=== PATIENT | male | born 1940 | race Caucasian/White ===

== ENCOUNTER 2017-12-19 08:20 | Day surgery (SDC) | payer OTHER ==
[2017-12-19] MEDS ORDERED: Ringers Lactate 1,000 ML IV ONE (08:42)
[2017-12-19 08:50] LABS: Absolute Lymphocytes (CBC) 2.4 K/uL (0.7-4.9); Absolute Monocytes 0.4 K/uL (0.1-1.3); Absolute Neutrophil 4.8 K/uL (1.8-8.0); Basophils % 0.9 % (0-1.3); Eosinophils % 1.5 % (0-4.4); Hematocrit 43.4 % (39.6-49.0); Lymphocytes % 30.9 % (15.3-44.8); MCH 29.7 pg (27.0-35.0); MCV 88.6 fL (80-100); MPV 7.5 fL (7.6-11.3); Monocytes % 4.9 % (3.3-12.3)
--- NOTE | 2017-12-19 09:15 | RAD REPORT ---
EXAM DESCRIPTION: RAD - Chest Pa And Lat (2 Views) - 12/19/2017 8:59 am CLINICAL HISTORY: preop Chest pain. COMPARISON: Chest Single View dated 01/20/2016; CHEST SINGLE VIEW dated 05/31/2015; CHEST SINGLE VIEW dated 05/30/2015; CHEST SINGLE VIEW dated 03/25/2014 FINDINGS: The lungs are clear. The heart is upper limit normal in size. No displaced fractures. IMPRESSION: No acute or concerning finding suspected.
[2017-12-19] MEDS ORDERED: LIDOCAINE 1% MPF 2 ML AMPULE ONE (09:44)
[2017-12-19] MEDS ORDERED: PROPOFOL 200 MG/20 ML VIAL IV ONE (09:44)
--- NOTE | 2017-12-19 10:16 | ENDO RPT ---
[address], [address] COLONOSCOPY PROCEDURE REPORT EXAM DATE: 12/19/2017 PATIENT NAME: Bebeto Meeks MR #: [id number] BIRTHDATE: 1940 ATTENDING: Pepe Diaz M.D. STATUS: outpatient MANAGED CARE LIAISON: Brittny Oliver and Jazmine Conde RN INDICATIONS: The patient is a 77 yr old Male here for a colonoscopy due to colon cancer screening PROCEDURE PERFORMED: Screening Colonoscopy MEDICATIONS: Per Anesthesia. ESTIMATED BLOOD LOSS: None CONSENT: The patient understands the risks and benefits of the procedure and understands that these risks include, but are not limited to: sedation, allergic reaction, infection, perforation and/or bleeding. Alternative means of evaluation and treatment include, among others: physical exam, x-rays, and/or surgical intervention. The patient elects to proceed with this endoscopic procedure. DESCRIPTION OF PROCEDURE: During intra-op preparation period all mechanical medical equipment was checked for proper function. Hand hygiene and appropriate measures for infection prevention was taken. Procedure, possible complications, alternatives including, but not limited to possibility of bleeding, perforation, tear, infection, sepsis, need for surgery, need for blood transfusion, were explained to the patient. After the risks, benefits and alternatives of the procedure were thoroughly explained, Informed consent was verified, confirmed and timeout was successfully executed by the treatment team. The patient was placed in the left lateral position. A digital rectal exam was performed and revealed an enlarged prostate. After appropriate level of anesthesia, the scope was passed. The EC-[id number] ([id number]) endoscope was introduced through the anus and advanced to the cecum, which was identified by the ileocecal valve. The quality of the prep was good. The instrument was then slowly withdrawn as the colon was fully examined. Scope withdrawal time was 10 minutes. COLON FINDINGS: Diverticula was found in the sigmoid colon. The opening was medium sized. Internal hemorrhoids were found. Retroflexed views revealed no abnormalities and Retroflexed views revealed small hemorrhoids. The scope was then completely withdrawn from the patient and the procedure terminated. ADVERSE EVENTS: There were no complications. IMPRESSIONS: 1. Diverticula in the sigmoid colon 2. Internal hemorrhoids RECOMMENDATIONS: 1. follow-up: office 1 week(s) 2. Metamucil 3. increase dietary water 4. no seeds in diet RECALL: Return in 10 year(s) Pepe Diaz M.D. eSigned: Pepe Diaz M.D. 12/19/2017 10:15 AM cc: CPT CODES: ICD9 CODES: PATIENT NAME: Bebeto Meeks MR#: [id number]
[2017-12-19 10:39] VITALS: TEMP 98.2
[2017-12-19 10:40] VITALS: BP 108/54; O2SAT 96
--- NOTE | 2017-12-21 16:31 | EKG ---
Test Date: 2017-12-20 Test Time: 18:00:37 Counter Tender: ROSI MEASUREMENT RESULTS: Intervals: Rate: 91 WA: 146 QRSD: 86 QT: 360 QTc: 442 [place]: P: 53 WA: 146 QRS: 27 T: 48 INTERPRETIVE STATEMENTS: Normal sinus rhythm Normal ECG Compared to ECG 05/31/2015 06:41:29 Sinus bradycardia no longer present Electronically Signed On 12-21-17 16:27:53 CDT by Tirso Broussard
== END 2017-12-19 10:45 | disposition home or self-care (01) ==
LOC: OR 08:20
PROVIDERS: ATTEND Surgery
PROC: 0DJD8ZZ Inspection of Lower Intestinal Tract, Via Natural or Artificial Opening Endoscopic (ICD-10-PCS; principal; 2017-12-19 10:00)
DX: Z12.11 Encounter for screening for malignant neoplasm of colon (principal); Z88.5 Allergy status to narcotic agent; Z88.2 Allergy status to sulfonamides; I25.10 Atherosclerotic heart disease of native coronary artery without angina pectoris; Z95.5 Presence of coronary angioplasty implant and graft; I25.2 Old myocardial infarction; Z79.02 Long term (current) use of antithrombotics/antiplatelets; Z79.82 Long term (current) use of aspirin; K57.30 Diverticulosis of large intestine without perforation or abscess without bleeding; K64.8 Other hemorrhoids
CPT/HCPCS: 36415; 71046; 85025; 93005; G0121; J2001

== ENCOUNTER 2018-04-01 20:06 | Emergency (ER) | payer OTHER ==
[2018-04-01] MEDS ORDERED: HYDROCODONE/APAP 10/325 TAB ONE (20:31)
--- NOTE | 2018-04-01 21:12 | RAD REPORT ---
EXAM DESCRIPTION: CT - Head Brain Wo Cont - 04/01/2018 8:53 pm CLINICAL HISTORY: Trip and fall, head injury COMPARISON: None. TECHNIQUE: Axial 5 mm thick images of the head were obtained without IV contrast. All CT scans are performed using dose optimization technique as appropriate and may include automated exposure control or mA/KV adjustment according to patient size. FINDINGS: No intracranial hemorrhage, mass, edema or shift of mid-line structures. No acute infarcti on changes seen. No abnormal extra-axial fluid collections. Ventricles are normal. No significant atr ophy or chronic ischemic change. Mastoid air cells and visualized portions of the paranasal sinuses are clear. No acute bony findings. IMPRESSION: Negative non-contrast CT head examination for acute finding.
--- NOTE | 2018-04-01 21:24 | RAD REPORT ---
EXAM DESCRIPTION: RAD - Wrist Right 3 View - 04/01/2018 9:09 pm CLINICAL HISTORY: Trip and fall, wrist pain COMPARISON: None. FINDINGS: Transverse fracture is present in the distal radius. There is an oblique fracture line idania t extends to the articular surface. No distraction or angulation deformity seen. An old ulna styloid fracture is evident. Widening of the scapholunate joint space is present. This is probably chronic. A ge is indeterminate. 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 There is no dislocation or periosteal reaction noted. Epiphyses and growth plates are Normal in appearance. No foreign body o r other soft tissue abnormality. IMPRESSION: Distal radius fracture extending to the articular surface. No significant distraction or angulation deformity. Widening of the scapholunate joint space likely chronic. Patient has degenerative change in the trape zium and trapezoid bone articulations with a deformed scaphoid bone.
--- NOTE | 2018-04-01 23:15 | ER ---
Nurse's Notes [facility] Name: Bebeto Meesk Age: 77 yrs Sex: Male : 1940 Arrival Date: 04/01/2018 Time: 20:09 Bed 20 Private MD: Scotty Marshall Diagnosis: Distal Radius Fracture;Acute Head Injury Presentation: 04/01 20:16 Presenting complaint: Patient states: I was walking across the parking lot and tripped la1 up the curb and hurt my right wrist and hit my head, pt denies LOC, takes plavix. Transition of care: patient was not received from another setting of care. Onset of symptoms was April 01, 2018. Risk Assessment: Do you want to hurt yourself or someone else? Patient reports no desire to harm self or others. Initial Sepsis Screen: Does the patient meet any 2 criteria? No. Patient's initial sepsis screen is negative. Does the patient have a suspected source of infection? No. Patient's initial sepsis screen is negative. Care prior to arrival: None. 20:16 Method Of Arrival: Ambulatory la1 20:16 Acuity: INDIO 3 la1 Historical: - Allergies: 20:16 Percodan; la1 20:16 Sulfa (Sulfonamide Antibiotics); la1 - Home Meds: 23:28 Aspirin 81 mg Oral once daily [Active]; atorvastatin 80 mg Oral tab 1 tab once daily lp1 [Active]; lisinopril 5 mg Oral tab 1 tab once daily [Active]; multivitamin Oral daily [Active]; Plavix 75 mg Oral tab 1 tab once daily [Active]; - PMHx: 20:16 Hypertension; Myocardial infarction; la1 - Immunization history:: Adult Immunizations up to date. - Social history:: Smoking status: Patient/guardian denies using tobacco. - Ebola Screening: : No symptoms or risks identified at this time. Screenin:38 Abuse screen: Denies threats or abuse. Denies injuries from another. Nutritional lp1 screening: No deficits noted. Tuberculosis screening: No symptoms or risk factors identified. Fall Risk None identified. Assessment: 21:00 General: Appears in no apparent distress. Behavior is appropriate for age. Pain: lp1 Complains of pain in right wrist Pain currently is 7 out of 10 on a pain scale. Neuro: Level of Consciousness is awake, alert, obeys commands. Cardiovascular: Patient's skin is warm and dry. Respiratory: Respiratory effort is even, unlabored. GI: No deficits noted. : No deficits noted. EENT: No deficits noted. Derm: abrasion noted to left side of forehead. Musculoskeletal: Range of motion: limited in right wrist. 22:15 Reassessment: Patient appears in no apparent distress at this time. Patient aware of lp1 need for splint, waiting for tech to be available. 23:15 Reassessment: Patient is alert, oriented x 3, equal unlabored respirations, skin lp1 warm/dry/pink. Patient refuses need for sling to right arm; Provider aware Patient states feeling better. Vital Signs: 20:19 Pulse 96; Resp 16; Temp 98.3(TE); Pulse Ox 98% on R/A; la1 20:20 BP 150 / 71; la1 ED Course: 20:09 Patient arrived in ED. es 20:10 Scotty Marshall MD is Private Physician. es 20:17 Triage completed. la1 20:17 Arm band placed on right wrist. la1 20:43 Robson Hinkle PA is PHCP. jmm 20:43 Tomy Stuart MD is Attending Physician. jmm 20:53 CT completed. Patient tolerated procedure well. Patient moved back from CT. kw1 21:36 Nithya Dixon, DANO is Primary Nurse. lp1 21:38 Patient has correct armband on for positive identification. lp1 23:06 Orthoglass splint: Sugar tong splint applied on right arm. mt 23:13 Bon Betancourt MD is Referral Physician. [facility] 23:28 No provider procedures requiring assistance completed. Patient did not have IV access lp1 during this emergency room visit. Administered Medications: 20:25 Drug: [place] 10 mg-325 mg 1 tabs Route: PO; la1 21:30 Follow up: Response: Pain is decreased lp1 Outcome: 23:14 Discharge ordered by . jmm 23:29 Discharged to home ambulatory, with significant other. lp1 23:29 Condition: good 23:29 Discharge instructions given to patient, Instructed on discharge instructions, follow up and referral plans. medication usage, Demonstrated understanding of instructions, follow-up care, medications, Prescriptions given X 1. 23:29 Patient left the ED. lp1 Signatures: Robson Hinkle PA PA jmm Salyer, Edna es Pena, Laura, RN RN lp1 Amor Lockhart RN RN la1 Lela Ingram mt, Kimberly [facility] Corrections: (The following items were deleted from the chart) 20:18 20:16 Presenting complaint: Patient states: I was walking across the parking lot and la1 tripped up the curb and hurt my right wrist and hit my head, pt denies LOC la1 20:18 20:16 Acuity: INDIO 4 la1 la1
--- NOTE | 2018-04-01 23:15 | EDPHYS ---
Physician Documentation [facility] Name: Bebeto Meeks Age: 77 yrs Sex: Male : 1940 Arrival Date: 04/01/2018 Time: 20:09 Bed 20 Private MD: Scotty Marshall ED Physician Tomy Stuart HPI: 04/01 21:19 This 77 yrs old Male presents to ER via Ambulatory with complaints of Fall jmm Injury, Wrist Injury. 21:19 Details of fall: The patient fell from an upright position, while walking. Onset: The jmm symptoms/episode began/occurred acutely, just prior to arrival. This is a 77 year old male with a history of htn, CAD that presents to the ED with a head injury and right wrist injury after a fall which occurred just prior to arrival. Patient states he tripped while walking onto a curb. Fell forward on an stretched hand injuring his wrist and hitting his head. Patient denies neck pain or other injury. . Historical: - Allergies: 20:16 Percodan; la1 20:16 Sulfa (Sulfonamide Antibiotics); la1 - Home Meds: 23:28 Aspirin 81 mg Oral once daily [Active]; atorvastatin 80 mg Oral tab 1 tab once daily lp1 [Active]; lisinopril 5 mg Oral tab 1 tab once daily [Active]; multivitamin Oral daily [Active]; Plavix 75 mg Oral tab 1 tab once daily [Active]; - PMHx: 20:16 Hypertension; Myocardial infarction; la1 - Immunization history:: Adult Immunizations up to date. - Social history:: Smoking status: Patient/guardian denies using tobacco. - Ebola Screening: : No symptoms or risks identified at this time. ROS: 21:19 Constitutional: Negative for fever, chills, and weight loss, Eyes: Negative for injury, jmm pain, redness, and discharge, Cardiovascular: Negative for chest pain, palpitations, and edema, Respiratory: Negative for shortness of breath, cough, wheezing, and pleuritic chest pain. 21:19 MS/extremity: Positive for injury or acute deformity. 21:19 Neuro: Negative for dizziness, headache. 21:19 All other systems are negative. Exam: 21:19 Eyes: EOMI, no conjunctival erythema appreciated ENT: Moist Mucus Membranes jmm 21:19 Cardiovascular: Regular rate and rhythm. No edema appreciated Respiratory: Normal respirations, no respiratory distress appreciated 21:19 Constitutional: The patient appears in no acute distress, alert, awake. 21:19 Head/face: abrasion noted to the left frontal scalp. 21:19 Neck: C-spine: appears grossly normal, ROM/movement: is normal. 21:19 Musculoskeletal/extremity: swelling noted to the right wrist, no snuffbox tenderness is appreciated, compartments are soft, NVI. 21:19 Skin: Appearance: Color: normal in color. 21:19 Neuro: Orientation: is normal, Mentation: is normal, Memory: is normal. 21:19 Psych: Behavior/mood is pleasant, cooperative. Vital Signs: 20:19 Pulse 96; Resp 16; Temp 98.3(TE); Pulse Ox 98% on R/A; la1 20:20 BP 150 / 71; la1 MDM: 21:19 Patient medically screened. [facility] 23:12 Data reviewed: vital signs, nurses notes. Counseling: I had a detailed discussion with thiago the patient and/or guardian regarding: the historical points, exam findings, and any diagnostic results supporting the discharge/admit diagnosis, radiology results, the need for outpatient follow up, to return to the emergency department if symptoms worsen or persist or if there are any questions or concerns that arise at home. 04/01 20:25 Order name: Wrist Right 3 View XRAY la1 04/01 20:25 Order name: CT Head Brain wo Cont la1 04/01 21:14 Order name: CT; Complete Time: 21:45 EDMS 04/01 21:24 Order name: RAD; Complete Time: 21:45 EDMS 04/01 21:46 Order name: Sugar Tong Forearm Splint; Complete Time: 23:06 [facility] Administered Medications: 20:25 Drug: [place] 10 mg-325 mg 1 tabs Route: PO; la1 21:30 Follow up: Response: Pain is decreased lp1 Disposition: 04/02 05:01 Co-signature as Attending Physician, Tomy Stuart MD. rn Disposition: 04/01/18 23:14 Discharged to Home. Impression: Distal Radius Fracture, Acute Head Injury. - Condition is Stable. - Discharge Instructions: Head Injury, Adult, Radial Fracture. - Prescriptions for Tylenol- Codeine #3 300-30 mg Oral Tablet - take 1 tablet by ORAL route every 6 hours As needed; 20 tablet. - Medication Reconciliation Form, Thank You Letter, Antibiotic Education, Prescription Opioid Use form. - Follow up: Bon Betancourt MD; When: 2 - 3 days; Reason: Recheck today's complaints, Continuance of care, Re-evaluation by your physician. Signatures: Dispatcher [employer] EDMS Robson Hinkle PA PA Tomy King MD MD rn Pena, Laura RN RN lp1 Amor Lockhart RN RN la1 Corrections: (The following items were deleted from the chart) 04/01 23:06 21:46 Sling ordered. [facility] 23:29 23:14 04/01/2018 23:14 Discharged to Home. Impression: Distal Radius Fracture; Acute lp1 Head Injury. Condition is Stable. Forms are Medication Reconciliation Form, Thank You Letter, Antibiotic Education, Prescription Opioid Use. Follow up: Bon Betancourt; When: 2 - 3 days; Reason: Recheck today's complaints, Continuance of care, Re-evaluation by your physician. [facility]
[2018-04-01 23:40] VITALS: TEMP 98.3; O2SAT 98
[2018-04-01 23:41] VITALS: BP 150/71
== END 2018-04-01 23:29 | disposition home or self-care (01) ==
LOC: ER 20:06
PROC: 2W3CX1Z Immobilization of Right Lower Arm using Splint (ICD-10-PCS; principal; 2018-04-01)
DX: S52.501A Unspecified fracture of the lower end of right radius, initial encounter for closed fracture (principal); S09.90XA Unspecified injury of head, initial encounter; W01.198A Fall on same level from slipping, tripping and stumbling with subsequent striking against other object, initial encounter; Y93.01 Activity, walking, marching and hiking; Y92.481 Parking lot as the place of occurrence of the external cause; I10 Essential (primary) hypertension; I25.10 Atherosclerotic heart disease of native coronary artery without angina pectoris; I25.2 Old myocardial infarction; Z79.82 Long term (current) use of aspirin; Z79.02 Long term (current) use of antithrombotics/antiplatelets; Z79.899 Other long term (current) drug therapy
CPT/HCPCS: 70450; 99284

== ENCOUNTER 2021-10-13 13:10 | Emergency (ER) | payer OTHER ==
--- OUTSIDE RECORDS SUMMARY | 2021-10-13 13:14 | XMS REPORT | Continuity of Care Document ---
:1940 Author Organization [facility] t Address [address] [place] [address] Care Team Providers Name Role Phone MINNIE NORRIS Attending Clinician Unavailable Payers Payer Name Policy Type Policy Number Effective Date Expiration Date Ketty corrales [employer] MED[employer]ARE HMO [id number] 2020 POS PPO 00:00:00 Problems This patient has no known problems. Allergies, Adverse Reactions, Alerts Allergy Allergy Status Severity Reaction(s) Onset Inactive Treating Comm ents Source Name Type Date Date Clinician OXYCODON Allergy Active 2017-[address] [facility]: [facility] ODONE- 00 [facility] A SULFA Allergy Active 2017-[address] [facility] [address] [facility]SULFONA [facility] 00:[facility]: Medical ANTIBIOT 00 Center ICS) Medications This patient has no known medications. Procedures This patient has no known procedures. Encounters Start End Encounter Admission Attending Care Care Encounter Source Date/Time Date/Time Type Type Clinicians Facility Department ID 2020-05-12 2020-05-12 Outpatient [facility] [id number] [facility] 00:00:00 00:00:00 2020-05-08 2020-05-08 Outpatient [facility] [id number] [facility] 00:00:00 00:00:00 Results Test Description Test Time Test Comments Results Result Comments Source SARS-COV2/RT-PCR ([facility]) 2020-05-12 17:45:00 Test Item Value Reference Range Interpretation Comme nts SARS-COV2/RT-PCR (test code = 1047376) Negative Not Detected, N egative, See external report for linked test SARS-COV-2 PERFORMING LAB (test code = [facility] [id number]) Negative result for this test determines that SARS-CoV-2 RNA was not present in the specimen above the Limit of Detection (LOD). However, Negative results do not preclude SARS-CoV-2 infection and should not be used as the sole basis for treatment or patient management decisions. Negative results mustbe combined with clinical observations, patient history, and epidemiological information. A false negative result may occur if a specimen is improperly collected, transported or handled. A false negative result should be considered if patient's recent exposures or clinical presentation indicate that COVID-19 (SARS-CoV-2) is likely and diagnostic tests for other causes of illness are negative. Re-testing should be considered in cases of suspected false negatives.The limit of detection for this assay is 800 copies/mL.This SARS CoV-2 test is a real-time RT-PCR test intended for the qualitative detection of nucleic acid from SARS-CoV-2 in a nasopharyngeal swab specimen collected from individuals susp ected of COVID-19 by their healthcare provider.This test has not been Food and Drug Administration (FDA) cleared or approved. This is a modified version of an approved Emergency Use Authorization (EUA) and is in the process of review by the FDA. Once authorized by the FDA, the issued EUA will be effective until the declaration that circumstances exist justifying the authorization of the emergency use of in vitro diagnostic tests for detection and/or diagnosis of COVID-19 is terminated under Section 564(b)(2) of the Act or the EUA is revoked under Section 564(g) of the Act.Fact Sheet for Healthcare Providers:https://www.[employer].com/sites/default/files/product/documents/Fact_Shee a_NG_Tjvahfhzw_Filk_RLSP-ByW-2.pdfFact Sheet for Healthcare Patients:https://www.[employer].com/sites/default/files/product/ documents/Rbct_Thydt_Ugifreey_Fzmi_LOZW-NmB-1.pdfPerforming Laboratory:[facility].[place], [place] [address]MMDM-XVF5/RT-PCR ([facility])2020-05-08 14:33:00 Test Item Value Reference Range Interpretation Comments SARS-COV2/RT-PCR (test Negative Not Detected, Negative, code = [id number]) See external report for linked test SARS-COV-2 PERFORMING LAB [facility] (test code = [id number]) Negative result for this test determines that SARS-CoV-2 RNA was not present in the specimen above the Limit of Detection (LOD). However, Negative results do not preclude SARS-CoV-2 infection and should not be used as the sole basis for treatment or patient management decisions. Negative results mustbe combined with clinical observations, patient history, and epidemiological information. A false negative result may occur if a specimen is improperly collected, transported or handled. A false negative result should be considered if patient's recent exposures or clinical presentation indicate that COVID-19 (SARS-CoV-2) is likely and diagnostic tests for other causes of illness are negative. Re-testing should be considered in cases of suspected false negatives.The limit of detection for this assay is 800 copies/mL.This SARS CoV-2 test is a real-time RT-PCR test intended for the qualitative detection of nucleic acid from SARS-CoV-2 in a nasopharyngeal swab specimen collected from individuals susp ected of COVID-19 by their healthcare provider.This test has not been Food and Drug Administration (FDA) cleared or approved. This is a modified version of an approved Emergency Use Authorization (EUA) and is in the process of review by the FDA. Once authorized by the FDA, the issued EUA will be effective until the declaration that circumstances exist justifying the authorization of the emergency use of in vitro diagnostic tests for detection and/or diagnosis of COVID-19 is terminated under Section 564(b)(2) of the Act or the EUA is revoked under Section 564(g) of the Act.Fact Sheet for Healthcare Providers:https://www.[employer].com/sites/default/files/product/documents/Fact_Shee n_NR_Vsvsxfjhm_Gezb_YOIH-CnE-0.pdfFact Sheet for Healthcare Patients:https://www.[employer].com/sites/default/files/product/ documents/Sukp_Qvbmo_Wzaqbaud_Ucok_PISO-NdZ-8.pdfPerforming Laboratory:[facility] [place] [address]
--- NOTE | 2021-10-13 14:10 | RAD REPORT ---
EXAM DESCRIPTION: RAD - Chest Single View - 10/13/2021 2:03 pm CLINICAL HISTORY: CHEST PAIN COMPARISON: Chest Pa And Lat (2 Views) dated 12/19/2017; Chest Single View dated 01/20/2016; CHEST SIN GLE VIEW dated 05/31/2015; CHEST SINGLE VIEW dated 05/30/2015 FINDINGS: Lines: None. Lungs: No evidence of edema or pneumonia. Pleural: No significant pleural effusions or pneumothorax. Cardiac: The heart size is within normal limits. Bones: No acute fractures. Other: IMPRESSION: No acute cardiopulmonary disease.
[2021-10-13 14:51] LABS: Absolute Lymphocytes (CBC) 2.6 K/uL (0.7-4.9); Hematocrit 41.7 % (39.6-49.0); Lymphocytes % 31.3 % (15.3-44.8); MPV 7.5 fL (7.6-11.3); Protime INR 0.98; RBC Red Blood Cell Count 4.59 M/uL (4.33-5.43)
[2021-10-13 14:54] LABS: ALT/SGPT 25 U/L (12-78); AST/SGOT 21 U/L (15-37); Albumin 3.6 g/dL (3.4-5.0); Alkaline Phosphatase 89 U/L (45-117); BUN Blood Urea Nitrogen 24 mg/dL (7-18); Bicarbonate 27 mmol/L (21-32); Bilirubin Total 0.3 mg/dL (0.2-1.0); Glomerular Filtration Rate 67 ml/min (=/>90); Glucose Level 100 mg/dL (74-106); Magnesium 2.3 mg/dL (1.8-2.4); NT PRO-BNP 87 pg/mL (<450); Potassium 4.5 mmol/L (3.5-5.1); Protein, Total 6.9 g/dL (6.4-8.2); Sodium Level 140 mmol/L (136-145); Troponin High Sensitivity 6.8 pg/mL (<58.9)
[2021-10-13 14:59] LABS: Bilirubin Direct < 0.1 mg/dL (0-0.2)
--- NOTE | 2021-10-13 16:08 | EDPHYS ---
Physician Documentation [facility] Name: Bebeto Meeks Age: 81 yrs Sex: Male : 1940 Arrival Date: 10/13/2021 Time: 13:11 Bed 7 Private MD: ED Physician Tristan Shafer HPI: 10/13 13:44 This 81 yrs old Male presents to ER via Ambulatory with complaints of Chest Pain. pm1 13:44 The patient or guardian reports chest pain that is located primarily in the The patient pm1 or guardian reports chest pain that is located primarily in the xiphoid area. Onset: yesterday. The pain does not radiate. Associated signs and symptoms: The patient has no apparent associated signs or symptoms, Pertinent positives: cough, Pertinent negatives: abdominal pain, dizziness, headache, shortness of breath. The chest pain is described as sharp. Duration: The patient or guardian reports a single episode, that is still ongoing, but improving. Modifying factors: the symptoms are aggravated by cough. Severity of pain: in the emergency department the pain is a 2 / 10. The patient has not recently seen a physician. Historical: - Allergies: 13:19 Percodan; tw2 13:19 Sulfa (Sulfonamide Antibiotics); tw2 - Home Meds: 13:19 multivitamin Oral daily [Active]; Aspirin 81 mg Oral weekly [Active]; lisinopril 5 mg tw2 Oral tab 1 tab once daily [Active]; Plavix 75 mg Oral tab 1 tab once daily [Active]; atorvastatin 80 mg Oral tab 1 tab once daily [Active]; gabapentin 300 mg oral Tb24 1 tab once daily [Active]; - PMHx: 13:19 Hypertension; Myocardial infarction; tw2 - PSHx: 13:19 Cholecystectomy; b/l Knee replacement; neck sx; tw2 - Immunization history:: Client reports receiving the 2nd dose of the Covid vaccine. - Social history:: Smoking status: Patient denies any tobacco usage or history of. ROS: 13:44 Constitutional: Negative for fever, chills, and weight loss. pm1 13:44 Respiratory: Negative for shortness of breath, cough, wheezing, and pleuritic chest pain, Abdomen/GI: Negative for abdominal pain, nausea, vomiting, diarrhea, and constipation, MS/Extremity: Negative for injury and deformity, Skin: Negative for injury, rash, and discoloration, Neuro: Negative for headache, weakness, numbness, tingling, and seizure. 13:44 Cardiovascular: Positive for chest pain, Negative for edema, palpitations. 13:44 All other systems are negative. Exam: 13:44 Constitutional: This is a well developed, well nourished patient who is awake, alert, pm1 and in no acute distress. Head/Face: Normocephalic, atraumatic. 13:44 Cardiovascular: Regular rate and rhythm with a normal S1 and S2. No gallops, murmurs, or rubs. Normal PMI, no JVD. No pulse deficits. Respiratory: Lungs have equal breath sounds bilaterally, clear to auscultation and percussion. No rales, rhonchi or wheezes noted. No increased work of breathing, no retractions or nasal flaring. Abdomen/GI: Soft, non-tender, with normal bowel sounds. No distension or tympany. No guarding or rebound. No evidence of tenderness throughout. Back: No spinal tenderness. No costovertebral tenderness. Full range of motion. Skin: Warm, dry with normal turgor. Normal color with no rashes, no lesions, and no evidence of cellulitis. MS/ Extremity: Pulses equal, no cyanosis. Neurovascular intact. Full, normal range of motion. 13:44 Chest/axilla: Inspection: normal, Palpation: tenderness, of the xiphoid area, that totally reproduces the patient's complaints. 13:44 Neuro: Exam negative for acute changes, Orientation: is normal, Mentation: is normal, Motor: is normal, moves all fours. Vital Signs: 13:17 Pulse 91; Resp 17; Temp 98.3; Pulse Ox 98% on R/A; Weight 111.13 kg; Height 5 ft. 10 tw2 in. (177.80 cm); Pain 8/10; 13:17 BP 145 / 88; tw2 14:55 BP 142 / 65; Pulse 90; Resp 17; Pulse Ox 98% ; jg9 15:00 BP 131 / 59; Pulse 68; Resp 14 S; Pulse Ox 98% on R/A; jg9 16:00 BP 148 / 68; Pulse 68; Resp 19 S; Pulse Ox 100% on R/A; jg9 13:17 Body Mass Index 35.15 (111.13 kg, 177.80 cm) tw2 MDM: 14:39 Patient medically screened. pm1 16:05 Data reviewed: vital signs. Data interpreted: Pulse oximetry: on room air is 98 %. pm1 Interpretation: normal. 16:05 Counseling: I had a detailed discussion with the patient and/or guardian regarding: the pm1 historical points, exam findings, and any diagnostic results supporting the discharge/admit diagnosis, lab results, radiology results, the need for further work-up and treatment in the hospital. 16:05 Refusal of service: The patient/guardian displays adequate decision making capability pm1 and despite a detailed discussion of alternatives, benefits, risks, and consequences refuses: Admission to the hospital for further work-up and treatment, Patient would go home AMA since his work-up is negative and he feels that he has pleurisy. Discussed in length with patient my concern and rationale for the need for admission based on risk factors. However patient would like to go home still. Based on patient's reported self impression of pleurisy recommended NSAIDs or steroid. Patient requested to go home with steroid Dosepak. 10/13 13:44 Order name: Basic Metabolic Panel; Complete Time: 15:23 pm1 10/13 13:44 Order name: CBC with Diff; Complete Time: 15:23 pm10/13 13:44 Order name: LFT's; Complete Time: 15:23 pm1 10/13 13:44 Order name: Magnesium; Complete Time: 15:23 pm1 10/13 13:44 Order name: NT PRO-BNP; Complete Time: 15:23 pm10/13 13:44 Order name: PT-INR; Complete Time: 15:23 pm10/13 13:44 Order name: Troponin HS; Complete Time: 15:23 pm1 10/13 13:44 Order name: XRAY Chest (1 view); Complete Time: 14:27 pm10/13 13:44 Order name: EKG; Complete Time: 13:45 pm1 10/13 13:44 Order name: Cardiac monitoring; Complete Time: 14:56 pm1 10/13 13:44 Order name: EKG - Nurse/Tech; Complete Time: 14:59 pm10/13 13:44 Order name: IV Saline Lock; Complete Time: 14:25 pm1 10/13 13:44 Order name: Labs collected and sent; Complete Time: 14:25 pm1 10/13 14:49 Order name: COVID-19 SARS RT PCR (Document "Date of Onset" if Symptomatic) pm1 10/13 13:44 Order name: O2 Per Protocol; Complete Time: 15:04 pm1 10/13 13:44 Order name: O2 Sat Monitoring; Complete Time: 15:04 pm1 Administered Medications: No medications were administered Disposition: 16:26 Co-signature as Attending Physician, Tristan Shafer MD I agree with the assessment and kdr plan of care. Disposition Summary: 10/13/21 16:08 Discharge Ordered Location: Home pm1 Problem: new pm1 Symptoms: have improved pm1 Condition: Undetermined pm1 Diagnosis - Chest pain, unspecified pm1 Followup: pm1 - With: Emergency Department - When: As needed - Reason: Worsening of condition Followup: pm1 - With: Tirso Broussard MD - When: Upon discharge from the Emergency Department - Reason: Recheck today's complaints, Continuance of care, Re-evaluation by your physician Discharge Instructions: - Discharge Summary Sheet pm1 - Nonspecific Chest Pain, Adult pm1 Forms: - Medication Reconciliation Form pm1 - Thank You Letter pm1 - Antibiotic Education pm1 - Prescription Opioid Use pm1 Prescriptions: - Medrol (Alex) 4 mg Oral Tablets, Dose Pack - take 1 tablet by ORAL route as directed - follow package instructions; 1 pm1 packet; Refills: 0, Product Selection Permitted Signatures: Dispatcher [employer] EDMS Tristan Shafer MD MD kdr Marinas, Patrick, NP FREELANCE TRANSLATOR pm1 Zoie Carranza RN RN tw2
--- NOTE | 2021-10-13 16:08 | ER ---
Nurse's Notes [facility] Name: Bebeto Meeks Age: 81 yrs Sex: Male : 1940 Arrival Date: 10/13/2021 Time: 13:11 Bed 7 Private MD: Diagnosis: Chest pain, unspecified Presentation: 10/13 13:17 Chief complaint: Patient states: i was sitting in my recliner and started having chest tw2 pain ride in the mid sternal area. leaving forward hurts more. Coronavirus screen: At this time, the client does not indicate any symptoms associated with coronavirus-19. Ebola Screen: Patient denies travel to an Ebola-affected area in the 21 days before illness onset. Initial Sepsis Screen: Does the patient meet any 2 criteria? No. Patient's initial sepsis screen is negative. Does the patient have a suspected source of infection? No. Patient's initial sepsis screen is negative. Risk Assessment: Do you want to hurt yourself or someone else? Patient reports no desire to harm self or others. Onset of symptoms was October 12, 2021. 13:17 Method Of Arrival: Ambulatory tw2 13:17 Acuity: INDIO 3 tw2 Triage Assessment: 13:21 General: Appears in no apparent distress. well groomed, Behavior is calm, cooperative, tw2 appropriate for age. Pain: Complains of pain in xiphoid area. Cardiovascular: Reports None chest pain, pain reproducible with mvmt. Historical: - Allergies: 13:19 Percodan; tw2 13:19 Sulfa (Sulfonamide Antibiotics); tw2 - Home Meds: 13:19 multivitamin Oral daily [Active]; Aspirin 81 mg Oral weekly [Active]; lisinopril 5 mg tw2 Oral tab 1 tab once daily [Active]; Plavix 75 mg Oral tab 1 tab once daily [Active]; atorvastatin 80 mg Oral tab 1 tab once daily [Active]; gabapentin 300 mg oral Tb24 1 tab once daily [Active]; - PMHx: 13:19 Hypertension; Myocardial infarction; tw2 - PSHx: 13:19 Cholecystectomy; b/l Knee replacement; neck sx; tw2 - Immunization history:: Client reports receiving the 2nd dose of the Covid vaccine. - Social history:: Smoking status: Patient denies any tobacco usage or history of. Screenin:11 Abuse screen: Denies threats or abuse. Nutritional screening: No deficits noted. jd3 Tuberculosis screening: No symptoms or risk factors identified. Fall Risk IV access (20 points). Ambulatory Aid- None/Bed Rest/Nurse Assist (0 pts). Gait- Normal/Bed Rest/Wheelchair (0 pts) Mental Status- Oriented to own ability (0 pts). Total Carvajal Fall Scale indicates No Risk (0-24 pts). Assessment: 15:09 General: Appears in no apparent distress. comfortable, Behavior is calm, cooperative, jd3 appropriate for age. Pain: Complains of pain in chest Pain does not radiate. Pain began suddenly. Neuro: Antonio Agitation-Sedation Scale (RASS): 0 - Alert and Calm Level of Consciousness is awake, alert, obeys commands, Oriented to person, place, time, situation. Cardiovascular: Heart tones present Capillary refill < 3 seconds Patient's skin is warm and dry. Rhythm is regular. Respiratory: Airway is patent Respiratory effort is even, unlabored, Respiratory pattern is regular, symmetrical, Breath sounds are clear bilaterally. GI: No signs and/or symptoms were reported involving the gastrointestinal system. : No signs and/or symptoms were reported regarding the genitourinary system. EENT: No signs and/or symptoms were reported regarding the EENT system. Derm: Skin is intact, Skin is dry, Skin is normal, Skin temperature is warm. Musculoskeletal: Circulation, motion, and sensation intact. Range of motion: intact in all extremities. 16:13 Reassessment: This nurse went in to talk to the patient about his decision to leave vs jg9 being admitted. This nurse discussed in detail the benefits of staying vs the risks of leaving which could include or disability. 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 Patient reports that if he needs to return he will but at this time he wants to go home and follow up outpatient. This nurse made Carlo MANAGER GRAPHIC aware of patient continued refusal to stay-AMA forms completed and in chart. Vital Signs: 13:17 Pulse 91; Resp 17; Temp 98.3; Pulse Ox 98% on R/A; Weight 111.13 kg; Height 5 ft. 10 tw2 in. (177.80 cm); Pain 8/10; 13:17 BP 145 / 88; tw2 14:55 BP 142 / 65; Pulse 90; Resp 17; Pulse Ox 98% ; jg9 15:00 BP 131 / 59; Pulse 68; Resp 14 S; Pulse Ox 98% on R/A; jg9 16:00 BP 148 / 68; Pulse 68; Resp 19 S; Pulse Ox 100% on R/A; jg9 13:17 Body Mass Index 35.15 (111.13 kg, 177.80 cm) tw2 ED Course: 13:11 Patient arrived in ED. as 13:18 Triage completed. tw2 13:19 Arm band placed on. EKG completed in triage. Results shown to MD. tw2 13:44 Carlo Maza NP is PHCP. pm1 13:44 Tristan Shafer MD is Attending Physician. pm1 14:04 XRAY Chest (1 view) In Process Unspecified. EDMS 14:25 Inserted saline lock: 20 gauge in right antecubital area, using aseptic technique. tp1 Blood collected. 14:56 Daniel Cohen, RN is Primary Nurse. jd3 14:59 COVID-19 SARS RT PCR (Document "Date of Onset" if Symptomatic) Sent. mb7 15:12 Patient has correct armband on for positive identification. Placed in gown. Bed in low jd3 position. Call light in reach. Side rails up X 1. Adult w/ patient. Client placed on continuous cardiac and pulse oximetry monitoring. NIBP monitoring applied. front desk monitor on. Pulse ox on. NIBP on. 15:12 Patient maintains SpO2 saturation greater than 95% on room air. jd3 16:07 Tirso Broussard MD is Referral Physician. pm1 16:19 No provider procedures requiring assistance completed. jg9 Administered Medications: No medications were administered Medication: 15:11 VIS not applicable for this client. jd3 Outcome: 16:08 Discharge ordered by . pm1 16:19 AMA AMA form signed jg9 16:19 Condition: stable 16:19 Discharge instructions given to patient, Instructed on discharge instructions, follow up and referral plans. Demonstrated understanding of instructions, follow-up care. 16:23 Patient left the ED. jg9 Signatures: Dispatcher [employer] Arlin Andersen as Marinas, Carlo, SHON MANAGER GRAPHIC pm1 Zoie Carranza RN RN tw2 Daniel Cohen RN RN jd3 Kristin Lemus tp1 Beth Spears 7 Nesha Montoya RN RN jg9 Corrections: (The following items were deleted from the chart) 15:34 15:09 Cardiovascular: Capillary refill < 3 seconds Patient's skin is warm and dry. jd3 Rhythm is regular jd3 15:09 Respiratory: Airway is patent Respiratory effort is even, unlabored, Respiratory jd3 pattern is regular, symmetrical, jd3
[2021-10-13 16:43] VITALS: TEMP 98.3
[2021-10-13 16:48] VITALS: BP 148/68; O2SAT 100
--- NOTE | 2021-10-13 19:16 | EKG ---
Test Date: 2021-10-13 Test Time: 13:12:51 Well Service Floorperson: MARIBEL MEASUREMENT RESULTS: Intervals: Rate: 84 MN: 188 QRSD: 78 QT: 372 QTc: 439 [place]: P: 34 MN: 188 QRS: -14 T: 9 INTERPRETIVE STATEMENTS: Sinus rhythm with occasional premature ventricular complexes Inferior infarct, age undetermined Cannot rule out Anterior infarct, age undetermined Abnormal ECG Compared to ECG 12/20/2017 18:00:37 Ventricular premature complex(es) now present Myocardial infarct finding now present Electronically Signed On 10-13-21 19:15:41 CDT by Tirso Broussard
== END 2021-10-13 16:23 | disposition home or self-care (01) ==
LOC: ER 13:10
DX: R07.9 Chest pain, unspecified (principal); Z88.2 Allergy status to sulfonamides; I10 Essential (primary) hypertension; I25.2 Old myocardial infarction; Z20.822 Contact with and (suspected) exposure to COVID-19
CPT/HCPCS: 93005; 85025; 80048; 36415; 83735; 85610; 80076; 84484; 83880; 71045; U0003; 99285

== ENCOUNTER 2021-10-14 18:37 | Emergency (ER) | payer OTHER ==
--- OUTSIDE RECORDS SUMMARY | 2021-10-14 18:39 | XMS REPORT | Continuity of Care Document ---
:1940 Author Organization [facility] t Address [address] [place] [address] Care Team Providers Name Role Phone MINNIE NORRIS Attending Clinician Unavailable Payers Payer Name Policy Type Policy Number Effective Date Expiration Date Ketty corrales [employer] MEDICARE HMO [id number] 2020 POS PPO 00:00:00 Problems This patient [...] Clinicians Facility Department ID 2020-05-12 2020-05-12 Outpatient [facility] [id number] SLE 00:00:00 00:00:00 2020-05-08 2020-05-08 Outpatient [facility] [id number] SLE 00:00:00 00:00:00 Results Test Description Test Time Test Comments Results Result Comments Source SARS-COV2/RT-PCR ([facility]) 2020-05-12 17:45:00 Test Item Value Reference Range Interpretation Comme nts SARS-COV2/RT-PCR (test code = 2034511) Negative Not Detected, N egative, See external report for linked test SARS-COV-2 PERFORMING LAB (test code = [facility] 5884535) Negative result for this test determines that [...] 564(g) of the Act.Fact Sheet for Healthcare Providers:https://www.[employer].com/sites/default/files/product/documents/Fact_Shee d_BK_Jzwmlegal_Exug_KPJY-PvW-8.pdfFact Sheet for Healthcare Patients:https://www.[employer].com/sites/default/files/product/ documents/Dqsi_Tmvgj_Lrzjkzyz_Ngxq_HTFE-LjH-4.pdfPerforming Laboratory:[facility], [place] [address]NWXP-ACO2/RT-PCR ([facility])2020-05-08 14:33:00 Test Item Value Reference Range Interpretation Comments SARS-COV2/RT-PCR (test Negative Not Detected, Negative, code = 6381037) See external report for linked test SARS-COV-2 PERFORMING LAB [facility] (test code = 9007055) Negative result for this test determines that [...] 564(g) of the Act.Fact Sheet for Healthcare Providers:https://www.[employer].com/sites/default/files/product/documents/Fact_Shee k_DS_Pqnepraim_Rmka_ZDZK-NzG-1.pdfFact Sheet for Healthcare Patients:https://www.[employer].com/sites/default/files/product/ documents/Oack_Duqdf_Ymhrfxhu_Brlc_MLTQ-FzN-9.pdfPerforming Laboratory:[facility] [place] [address]
[2021-10-14 20:22] LABS: Absolute Lymphocytes (CBC) 2.2 K/uL (0.7-4.9); Hematocrit 42.8 % (39.6-49.0); MPV 7.3 fL (7.6-11.3)
[2021-10-14] MEDS ORDERED: MAGNES/ALUMIN/SIMET 30ML UCUP ONE (20:32)
[2021-10-14] MEDS ORDERED: FENTANYL CITR 100 MCG/2 ML ONE (20:33)
[2021-10-14] MEDS ORDERED: ONDANSETRON 4 MG/2 ML VIAL ONE (20:33)
[2021-10-14] MEDS ORDERED: LIDOCAINE VISCOUS 2% SOLN 15 ML UDC ONE (20:33)
[2021-10-14 20:35] LABS: Troponin High Sensitivity 6.9 pg/mL (<58.9)
--- NOTE | 2021-10-14 21:35 | RAD REPORT ---
EXAM DESCRIPTION: CTAngio Aorta For Dissection - 10/14/2021 9:14 pm CLINICAL HISTORY: Chest pain, back pain COMPARISON: CTANGIO AORTA FOR DISSECTION dated 03/24/2014 TECHNIQUE: CTA of the aorta was obtained of the chest, abdomen, and pelvis was performed. MIPS were performed. All CT scans are performed using dose optimization technique as appropriate and may include automated exposure control or mA/KV adjustment according to patient size. FINDINGS: Thorax: Chest Wall: No abnormal mass Lungs: 4 mm left lower lobe pulmonary nodule is unchanged and benign. Pleura: No effusions or pneumothorax. Joy/Mediastinum: No lymphadenopathy. Aorta/Pulmonary Arteries: Unremarkable Heart: Normal size. Multi-vessel coronary artery disease. Small juxtapericardial cyst along the right aspect of the heart on image 54, series 401. Abdomen/Pelvis: Liver: Too small to characterize low-density liver lesions which are statistically benign. Biliary: Cholecystectomy . Stomach: No significant focal abnormality. Duodenum: No significant focal abnormality. Pancreas: No significant abnormality. Spleen: No significant abnormality. Adrenal: No suspicious lesions. Kidney/ureter: No hydronephrosis. No renal calculi. Retroperitoneum: No retroperitoneal adenopathy. Vascular: No aneurysm. Bowel: No significant focal abnormality. Peritoneum: Small fat containing inguinal hernias. Bladder: Grossly unremarkable. Reproductive: No adnexal masses.Mild prostatomegaly. Bones: No acute fracture. Multilevel degenerative changes are present in the spine. Other: n/a IMPRESSION: Negative for aortic aneurysm, aortic dissection, or pulmonary embolus. No acute findings identified. Incidental findings as noted above.
--- NOTE | 2021-10-14 22:02 | ER ---
Nurse's Notes [facility] Name: Bebeto Meeks Age: 81 yrs Sex: Male : 1940 Arrival Date: 10/14/2021 Time: 18:38 Bed 17 Private MD: Scotty Marshall Diagnosis: Thoracic Back Pain Presentation: 10/14 19:08 Chief complaint: Patient states: mid-back pain that began yesterday. Pt states "I just aa5 went to lie down and when I tried to get up that's when it started hurting". Reports being seen in ER yesterday for chest pain and sent home with Medrol-pack. 19:08 Acuity: INDIO 3 aa5 19:10 Coronavirus screen: At this time, the client does not indicate any symptoms associated aa5 with coronavirus-19. Ebola Screen: No symptoms or risks identified at this time. Initial Sepsis Screen: Does the patient meet any 2 criteria? No. Patient's initial sepsis screen is negative. Does the patient have a suspected source of infection? No. Patient's initial sepsis screen is negative. Risk Assessment: Do you want to hurt yourself or someone else? Patient reports no desire to harm self or others. Onset of symptoms was September 2021. 19:10 Method Of Arrival: Ambulatory aa5 Triage Assessment: 19:30 General: Appears in no apparent distress. uncomfortable, Behavior is calm, cooperative, vc1 appropriate for age. 19:30 Pain: Complains of pain in back Pain does not radiate. Neuro: Level of Consciousness is vc1 awake, alert, obeys commands, Oriented to person, place, time, situation, Appropriate for age. Cardiovascular: Capillary refill < 3 seconds Patient's skin is warm and dry. Respiratory: Airway is patent Respiratory effort is even, unlabored, Respiratory pattern is regular, symmetrical. GI: No deficits noted. : No deficits noted. Derm: No deficits noted. Musculoskeletal: Circulation, motion, and sensation intact. Capillary refill Range of motion: intact in all extremities. Historical: - Allergies: 19:10 Percodan; aa5 19:10 Sulfa (Sulfonamide Antibiotics); aa5 - PMHx: 19:10 Hypertension; Myocardial infarction; aa5 - PSHx: 19:10 b/l knee replacement; Cholecystectomy; Neck sx; aa5 - Immunization history:: Adult Immunizations unknown. - Social history:: Smoking status: Patient denies any tobacco usage or history of. Screenin:14 Abuse screen: Denies threats or abuse. Nutritional screening: No deficits noted. vc1 Tuberculosis screening: No symptoms or risk factors identified. Fall Risk None identified. Assessment: 19:30 Reassessment: See triage assessment. vc1 19:30 Neuro: Antonio Agitation-Sedation Scale (RASS): 0 - Alert and Calm Level of vc1 Consciousness is awake, alert, obeys commands, Oriented to person, place, time, situation, Appropriate for age. 21:53 Reassessment: Patient and/or family updated on plan of care and expected duration. Pain vc1 level reassessed. Patient is alert, oriented x 3, equal unlabored respirations, skin warm/dry/pink. Patient states feeling better. Patient states symptoms have improved. Vital Signs: 19:10 BP 147 / 73; Pulse 88; Resp 18 S; Temp 98.0(TE); Pulse Ox 100% on R/A; Weight 111.13 kg aa5 (R); Height 5 ft. 10 in. (177.80 cm) (R); 21:53 BP 132 / 55; Pulse 66; Resp 14; Pulse Ox 96% on R/A; vc1 19:10 Body Mass Index 35.15 (111.13 kg, 177.80 cm) aa ED Course: 18:38 Patient arrived in ED. as 18:38 Scotty Marshall MD is Private Physician. as 19:08 Arm band placed on. aa5 19:09 Triage completed. aa5 19:16 Sandra Robbins, DANO is Primary Nurse. vc1 19:19 Robson Hinkle PA is PHCP. [facility] 19:19 Timmy Kaur MD is Attending Physician. [facility] 19:30 Patient has correct armband on for positive identification. Bed in low position. Client vc1 placed on continuous cardiac and pulse oximetry monitoring. NIBP monitoring applied. 20:13 Inserted saline lock: 22 gauge in left upper arm, using aseptic technique. Blood vc1 collected. 21:16 CT Aorta for Dissection In Process Unspecified. EDMS 22:00 Scotty Marshall MD is Referral Physician. [facility] 22:36 No provider procedures requiring assistance completed. IV discontinued, intact, vc1 bleeding controlled, No redness/swelling at site. Pressure dressing applied. Administered Medications: 20:35 Drug: GI Cocktail without - (Maalox Suspension 30 ml, Lidocaine Liquid 2 % 15 vc1 ml) Route: PO; 21:30 Follow up: Response: No adverse reaction; Marked relief of symptoms vc1 20:35 Drug: fentaNYL (PF) 50 mcg Route: IVP; Site: left upper arm; vc1 21:30 Follow up: Response: No adverse reaction; Marked relief of symptoms vc1 20:35 Drug: Zofran (Ondansetron) 4 mg Route: IVP; Site: left upper arm; vc1 21:30 Follow up: Response: No adverse reaction; Marked relief of symptoms vc1 Medication: 22:37 VIS not applicable for this client. vc1 Outcome: 22:01 Discharge ordered by . thiago 22:36 Discharged to home ambulatory, with family. vc1 22:36 Condition: good 22:36 Discharge instructions given to patient, Instructed on discharge instructions, follow up and referral plans. medication usage, Demonstrated understanding of instructions, follow-up care, medications, Prescriptions given X 1. 22:37 Patient left the ED. vc1 Signatures: Dispatcher [employer] EDMS Robson Hinkle PA PA jmm Martinez, Amelia as Calderon, Audri RN RN aa5 Sandra Robbins RN RN vc1 Corrections: (The following items were deleted from the chart) 19:10 19:08 Chief complaint: Patient states: mid-back pain that began yesterday. Pt states "I aa5 just went to lie down and when I tried to get up that's when it started hurting". aa5
--- NOTE | 2021-10-14 22:02 | EDPHYS ---
Physician Documentation [facility] Name: Bebeto Meeks Age: 81 yrs Sex: Male : 1940 Arrival Date: 10/14/2021 Time: 18:38 Bed 17 Private MD: Scotty Marshall ED Physician Timmy Kaur HPI: 10/14 19:21 This 81 yrs old Male presents to ER via Ambulatory with complaints of Back Pain. jmm 19:21 The patient presents with pain that is acute, with no known mechanism of injury. This jmm is a 81 year old male with a history of htn, cad that presents to the ED with complaints of acute onset thoracic back pain beginning earlier this evening when attempting to lie down. Patient was seen in the ED yesterday for chest pain with negative results. . Historical: - Allergies: 19:10 Percodan; aa5 19:10 Sulfa (Sulfonamide Antibiotics); aa5 - PMHx: 19:10 Hypertension; Myocardial infarction; aa5 - PSHx: 19:10 b/l knee replacement; Cholecystectomy; Neck sx; aa5 - Immunization history:: Adult Immunizations unknown. - Social history:: Smoking status: Patient denies any tobacco usage or history of. ROS: 19:21 Constitutional: Negative for fever, chills, and weight loss, Cardiovascular: Negative jmm for chest pain, palpitations, and edema, Respiratory: Negative for shortness of breath, cough, wheezing, and pleuritic chest pain. 19:21 Back: Positive for pain with movement. 19:21 All other systems are negative. Exam: 19:21 Constitutional: This is a well developed, well nourished patient who is awake, alert, jmm and in no acute distress. Head/Face: atraumatic. Eyes: EOMI, no conjunctival erythema appreciated ENT: Moist Mucus Membranes Neck: Trachea midline, Supple Chest/axilla: Normal chest wall appearance and motion. Cardiovascular: Regular rate and rhythm. No edema appreciated Respiratory: Normal respirations, no respiratory distress appreciated Abdomen/GI: Non distended, soft 19:21 Skin: General appearance color normal MS/ Extremity: Moves all extremities, no obvious deformities appreciated, no edema noted to the lower extremities Neuro: Awake and alert Psych: Behavior is normal, Mood is normal, Patient is cooperative and pleasant 19:21 Back: pain, that is moderate, of the thoracic area. Vital Signs: 19:10 BP 147 / 73; Pulse 88; Resp 18 S; Temp 98.0(TE); Pulse Ox 100% on R/A; Weight 111.13 kg aa5 (R); Height 5 ft. 10 in. (177.80 cm) (R); 21:53 BP 132 / 55; Pulse 66; Resp 14; Pulse Ox 96% on R/A; vc1 19:10 Body Mass Index 35.15 (111.13 kg, 177.80 cm) aa5 MDM: 19:21 Patient medically screened. sukhwinder 21:58 Data reviewed: vital signs, nurses notes. Counseling: I had a detailed discussion with thiago the patient and/or guardian regarding: the historical points, exam findings, and any diagnostic results supporting the discharge/admit diagnosis, lab results, radiology results, the need for outpatient follow up, to return to the emergency department if symptoms worsen or persist or if there are any questions or concerns that arise at home. ED course: Pain is decreased in the ED. Labs and imaging study reveal no acute findings. I discussed ct imaging incidental findings along with the patient. Patient advised to follow up with pcp and otherwise given strict return precautions. Patient understood and agrees with the plan of care. . 10/14 19:33 Order name: Basic Metabolic Panel; Complete Time: 20:35 [facility] 10/14 19:33 Order name: CBC with Diff; Complete Time: 20:35 [facility] 10/14 19:33 Order name: Troponin HS; Complete Time: 20:35 [facility] 10/14 19:34 Order name: CT Aorta for Dissection; Complete Time: 21:38 [facility] 10/14 19:33 Order name: EKG; Complete Time: 19:34 [facility] 10/14 19:33 Order name: Cardiac monitoring; Complete Time: 21:19 [facility] 10/14 19:33 Order name: EKG - Nurse/Tech; Complete Time: 20:13 [facility] 10/14 19:33 Order name: IV Saline Lock; Complete Time: 20:13 [facility] 10/14 19:33 Order name: Labs collected and sent; Complete Time: 20:13 [facility] 10/14 19:33 Order name: O2 Per Protocol; Complete Time: 20:13 [facility] 10/14 19:33 Order name: O2 Sat Monitoring; Complete Time: 20:13 [facility] Administered Medications: 20:35 Drug: GI Cocktail without - (Maalox Suspension 30 ml, Lidocaine Liquid 2 % 15 vc1 ml) Route: PO; 21:30 Follow up: Response: No adverse reaction; Marked relief of symptoms vc1 20:35 Drug: fentaNYL (PF) 50 mcg Route: IVP; Site: left upper arm; vc1 21:30 Follow up: Response: No adverse reaction; Marked relief of symptoms vc1 20:35 Drug: Zofran (Ondansetron) 4 mg Route: IVP; Site: left upper arm; vc1 21:30 Follow up: Response: No adverse reaction; Marked relief of symptoms vc1 Disposition: 10/15 08:38 Co-signature as Attending Physician, Timmy Kaur MD I agree with the assessment and sukhwinder plan of care. Disposition Summary: 10/14/21 22:01 Discharge Ordered Location: Home [facility] Condition: Stable [facility] Diagnosis - Thoracic Back Pain [facility] Followup: [facility] - With: Scotty Marshall MD - When: 2 - 3 days - Reason: Recheck today's complaints, Continuance of care, Re-evaluation by your physician Discharge Instructions: - Discharge Summary Sheet [facility] - Thoracic Strain [facility] Forms: - Medication Reconciliation Form [facility] - Thank You Letter [facility] - Antibiotic Education [facility] - Prescription Opioid Use [facility] Prescriptions: - Zanaflex 4 mg Oral Tablet - take 1 tablet by ORAL route every 8 hours As needed; 20 tablet; Refills: 0, [facility] Product Selection Permitted Signatures: Dispatcher [employer] Timmy Glez MD MD cha Mickail, Joel, PA PA [facility] Nicol Quintero, RN RN aa5 Sandra Robbins RN RN vc1
[2021-10-14 22:51] VITALS: TEMP 98
[2021-10-14 22:53] VITALS: BP 132/55; O2SAT 96
--- NOTE | 2021-10-16 08:57 | EKG ---
Test Date: 2021-10-14 Test Time: 19:56:33 Estate Planning Paralegal: DAMARI MEASUREMENT RESULTS: Intervals: Rate: 76 [place]: 200 QRSD: 78 QT: 364 QTc: 409 [place]: P: 57 [place]: 200 QRS: -11 T: 33 INTERPRETIVE STATEMENTS: Normal sinus rhythm Low voltage QRS Septal infarct, age undetermined Abnormal ECG Compared to ECG 10/13/2021 13:12:51 Low QRS voltage now present Ventricular premature complex(es) no longer present Myocardial infarct finding still present Electronically Signed On 10-16-21 08:55:21 CDT by Tirso Broussard
--- NOTE | 2021-10-16 08:57 | EKG ---
Test Date: 2021-10-14 Test Time: 19:57:17 Clinic Clerk: DAMARI MEASUREMENT RESULTS: Intervals: Rate: 78 NE: 202 QRSD: 80 QT: 370 QTc: 421 [place]: P: 54 NE: 202 QRS: -18 T: 30 INTERPRETIVE STATEMENTS: Sinus rhythm with occasional premature ventricular complexes Low voltage QRS Inferior infarct, age undetermined Cannot rule out Anterior infarct, age undetermined Abnormal ECG Compared to ECG 10/13/2021 13:12:51 Low QRS voltage now present Myocardial infarct finding still present Electronically Signed On 10-16-21 08:55:20 CDT by Tirso Broussard
== END 2021-10-14 22:37 | disposition home or self-care (01) ==
LOC: ER 18:37
DX: M54.6 Pain in thoracic spine (principal); I10 Essential (primary) hypertension; I25.2 Old myocardial infarction; Z88.2 Allergy status to sulfonamides; Z88.5 Allergy status to narcotic agent
CPT/HCPCS: 93005 ×2; 85025; 80048; 36415; 84484; 71275; 74175; 96375; 96374; 99284; Q9967; J3010; J2405